=== PATIENT | male | born 1990 | race Caucasian/White ===

== ENCOUNTER 2017-01-18 04:31 | Emergency (ER) | payer OTHER ==
--- NOTE | ~2017-01-18 | CR181 ---
[facility] A Service of [facility] RADIOLOGY TEXT RESULTS PATIENT: KD WALLACE LOCATION: [facility] : 86 UNIT #: [id number] AGE: [address]: Breana Mosquera APRN SEX: M ORDER DR: [id number] [place], [place] [address] [id number] E MR#: [id number] Acc #: [id number] NAME: KD WALLACE. : 1990 SEX: M STUDY DATE/TIME: 01/18/2017 4:26 UNIT: [facility] ROOM: STUDY DESCRIPTION: CR Lumbar Spine 2 or 3 Views Attending Physician: Breana Mosquera A.P.R.N. Ordering Physician: Breana Mosquera A.P.R.N. Primary Care Physician: Primary Care Physician No MEDICAL IMAGING REPORT This report is preliminary unless electronic signature is present EXAM Lumbar series 01/18/2017 INDICATION 26-year-old male complaining of generalized back pain for 2 days. No known injury. TECHNIQUE 3 views. COMPARISON None. FINDINGS Vertebral body heights maintained. Alignment preserved. No significant degenerative change. Mild degenerative change at the thoracolumbar junction. IMPRESSION Negative lumbar series. Dictated by... Jeremiah Hunter M.D. THIS IS AN ELECTRONICALLY VERIFIED REPORT Jeremiah Hunter M.D. at 01/18/2017 9:54 PM Jorge TD: 01/18/2017 08:36 JOB #: [id number] MEDICAL IMAGING REPORT [facility] A Service of [facility] RADIOLOGY TEXT RESULTS PATIENT: DK WALLACE LOCATION: [facility] : 86 UNIT #: [id number] AGE: [address]: Breana Mosquera APRN SEX: M ORDER DR: Page 1 of 1 COPY
--- NOTE | ~2017-01-18 | CR170 ---
[facility] A Service of [facility] RADIOLOGY TEXT RESULTS PATIENT: KD WALLACE LOCATION: [facility] : 86 UNIT #: [id number] AGE: [address]: Breana Mosquera APRN SEX: M ORDER DR: [id number] [facility] [address] [place], [place] [address] [id number] E MR#: [id number] Acc #: [id number] NAME: KD WALLACE. : 1990 SEX: M STUDY DATE/TIME: 01/18/2017 4:22 UNIT: [facility] ROOM: STUDY DESCRIPTION: CR Knee 2 Views Rt Attending Physician: Breana Mosquera A.P.R.N. Ordering Physician: Breana Mosquera A.P.R.N. Primary Care Physician: Primary Care Physician No MEDICAL IMAGING REPORT This report is preliminary unless electronic signature is present EXAM Right knee 2 views 01/18/2017 INDICATIONS Knee pain bilaterally and back pain for 2 days. No known injury. TECHNIQUE 2 views of the right knee no comparisons. FINDINGS AP and lateral projection of the knee shows smooth articular anatomy without indication of fracture or dislocation at the major weight-bearing surface of the knee. There is no indication of radiopaque foreign body about the knee surface or joint effusion. IMPRESSION Normal knee. Dictated by... Jeremiah Hunter M.D. THIS IS AN ELECTRONICALLY VERIFIED REPORT Jeremiah Hunter M.D. at 01/18/2017 9:54 PM Veronique TD: 01/18/2017 08:36 JOB #: [id number] MEDICAL IMAGING REPORT Page 1 of 1 COPY
--- NOTE | ~2017-01-18 | CR169 ---
[facility] A Service of [facility] RADIOLOGY TEXT RESULTS PATIENT: KD WALLACE LOCATION: [facility] : 86 UNIT #: [id number] AGE: [address]: Breaan Mosquera APRN SEX: M ORDER DR: [id number] [facility] [address] [place], [place] [address] [id number] E MR#: [id number] Acc #: [id number] NAME: KD WALLACE. : 1990 SEX: M STUDY DATE/TIME: 01/18/2017 4:24 UNIT: [facility] ROOM: STUDY DESCRIPTION: CR Knee 2 Views Lt Attending Physician: Breana Mosquera A.P.R.N. Ordering Physician: Breana Mosquera A.P.R.N. Primary Care Physician: Primary Care Physician No MEDICAL IMAGING REPORT This report is preliminary unless electronic signature is present EXAM Left knee 2 views, 01/18/2017 INDICATION General bilateral knee pain and back pain for 2 days. No known injury. TECHNIQUE 2 views left knee COMPARISON No comparisons FINDINGS AP and lateral projection of the knee shows smooth articular anatomy without indication of fracture or dislocation at the major weight-bearing surface of the knee. There is no indication of radiopaque foreign body about the knee surface or joint effusion. IMPRESSION Normal left knee. Dictated by... Jeremiah Hunter M.D. THIS IS AN ELECTRONICALLY VERIFIED REPORT Jeremiah Hunter M.D. at 01/18/2017 9:54 PM Kelly TD: 01/18/2017 08:31 JOB #: [id number] MEDICAL IMAGING REPORT Page 1 of 1 COPY
[~2017-01-18 04:31] MED LIST: BACTRIM DS TABL1 TA2 PO; LORTAB 5/500 TA1 TA1 PO; NO MEDICATIONS; PHENERGAN PO
[2017-01-18 05:14] LABS: BASOPHIL% 0.5 % (0-2.5); EOSINOPHIL# 0.3 X10e3 (0-0.7); EOSINOPHIL% 4.4 % (0.0-7.0); HEMATOCRIT 44.3 % (38.0-50.0); HEMOGLOBIN 15.1 gm/dL (13.0-16.0); LYMPHOCYTE# 2.1 X10e3 (1.0-3.5); LYMPHOCYTE% 28.6 % (17.0-45.0); MEAN CELL VOLUME 86.9 FL (83-96); MEAN CORPUSCULAR HEMOGLOBIN 29.7 PG (28-34); MEAN CORPUSCULAR HGB CONC 34.1 g/dL (30-36); MEAN PLATELET VOLUME 7.4 FL (6.5-11.5); MONOCYTE# 0.5 X10e3 (0-1.0); MONOCYTE% 7.4 % (3.0-12.0); NEUTROPHIL# 4.3 X10e3 (1.5-7.1); NEUTROPHIL% 59.1 % (40-75); PLATELET COUNT 252 X10e3 (140-420); RED CELL DISTRIBUTION WIDTH 13.4 % (11.0-15.5); WHITE BLOOD COUNT 7.2 X10e3 (4.0-10.5)
[2017-01-18 05:17] LABS: DIFF IND NO
[2017-01-18 05:51] LABS: BILIRUBIN, DIRECT 0.1 mg/dL (0.0-0.2); BILIRUBIN,INDIRECT 0.4 mg/dL (0.0-0.9); BILIRUBIN,TOTAL 0.5 mg/dL (0.2-2.0); CALCIUM SERUM 8.8 mg/dL (8.4-10.2); POTASSIUM 3.9 mmol/L (3.5-5.1); PROTEIN TOTAL SERUM 7.6 g/dL (6.0-8.3)
== END 2017-01-18 05:50 | disposition home or self-care (01) ==
LOC: CED 04:31
PROVIDERS: Nurse Practitioner
DX: M54.5 Low back pain (principal); M25.562 Pain in left knee; M25.561 Pain in right knee; F17.210 Nicotine dependence, cigarettes, uncomplicated; Z79.899 Other long term (current) drug therapy
CPT/HCPCS: 29530; 72100; 73560; 80048; 80076; 85025; 96372; 99284; J1885